=== PATIENT | male | born 1995 | race Caucasian/White ===

== ENCOUNTER 2020-12-10 12:26 | Inpatient (IN) ==
[2020-12-11] MEDS ORDERED: *HR* HYDROcodone/Acet 5/325 mg TABLET PO PRN ×2 (04:00→12:41)
[2020-12-11] MEDS ORDERED: ceFAZolin 2,000 MG in Water for inj. (sterile) 20 ML IVP ONE (08:08)
[2020-12-11] MEDS ORDERED: *HR* Midazolam HCl 2 MG/2 ML VIAL ONE ×2 (08:49→11:48)
[2020-12-11] MEDS ORDERED: *HR* Propofol 200 MG/20 ML VIAL IVP ONE ×2 (08:49)
[2020-12-11] MEDS ORDERED: *HR* FentaNYL (PF) 100 MCG/2 ML VIAL ONE ×3 (08:49→11:07)
[2020-12-11] MEDS ORDERED: Gabapentin 300 MG CAPSULE PO ONE (08:52)
[2020-12-11] MEDS ORDERED: Lidocaine -MPF 2% 2 ML VIAL ONE (08:52)
[2020-12-11] MEDS ORDERED: Ondansetron 4 MG/2 ML VIAL IVP PRN ×2 (08:53→12:41)
[2020-12-11] MEDS ORDERED: *HR* OxyCODONE Immed Rel 5 MG TABLET PO PRN (08:53)
[2020-12-11] MEDS ORDERED: Ketorolac 30 MG/ML VIAL IVP PRN (08:53)
[2020-12-11] MEDS ORDERED: Albuterol 2.5 MG/3 ML NEBULIZER IH PRN (08:53)
[2020-12-11] MEDS ORDERED: Acetaminophen IV 1,000 MG/100 ML BAG IVPB ONE ×2 (08:55→10:18)
[2020-12-11] MEDS ORDERED: Nicotine 14 MG PATCH.TD24 TD SCH (09:00)
[2020-12-11] MEDS ORDERED: Doxycycline 800 MG, Syringe LUER-LOK 1 EACH in 0.9 % Sodium Chloride 50 ML IX ONE (09:00)
[2020-12-11] MEDS ORDERED: *HR* Rocuronium Bromide 50 MG/5 ML VIAL ONE (09:05)
[2020-12-11] MEDS ORDERED: Ketorolac 30 MG/ML VIAL ONE (09:48)
[2020-12-11] MEDS ORDERED: Sugammadex Sodium 200 MG/2 ML VIAL IV ONE (10:32)
[2020-12-11] MEDS ORDERED: *HR* HYDROMORPHONE 2 MG/ML VIAL ONE (10:43)
[2020-12-11] MEDS: *HR* HYDROmorphone PF 0.5 MG/0.5 ML SYRINGE IVP PRN ×2 (11:12→11:40)
[2020-12-11] MEDS ORDERED: *HR* Midazolam HCl 2 MG/2 ML VIAL IVP PRN (11:37)
[2020-12-11] MEDS ORDERED: Naloxone 0.4 MG/ML INJ IVP PRN (12:41)
[2020-12-11] MEDS: 0.9 % Sodium Chloride 1,000 ML IVC SCH (13:00)
[2020-12-11] MEDS: Ketorolac 15 MG/ML VIAL IVP SCH ×2 (13:00→19:44)
[2020-12-11] MEDS: Ipratropium/Albuterol Neb 3 ML IH SCH ×3 (16:10→23:32)
[2020-12-11] MEDS: *HR* OxyCODONE/APAP 5/325 TABLET PO PRN ×2 (16:12→19:45)
[2020-12-11] MEDS: Gabapentin 300 MG CAPSULE PO SCH ×2 (16:12→21:49)
[2020-12-11] MEDS: ALPRAZolam 0.25 MG TABLET PO PRN (16:13)
[2020-12-11] MEDS: Sennosides/Docusate Sodium TABLET PO SCH (21:49)
[2020-12-11] MEDS: Famotidine 20 MG TABLET PO SCH (21:49)
[2020-12-11] MEDS: Nicotine 14 MG PATCH.TD24 TD SCH (22:01)
[2020-12-12] MEDS: *HR* OxyCODONE/APAP 5/325 TABLET PO PRN ×3 (00:20→20:19)
[2020-12-12] MEDS: ALPRAZolam 0.25 MG TABLET PO PRN ×2 (00:21→20:19)
[2020-12-12] MEDS: Ketorolac 15 MG/ML VIAL IVP SCH ×4 (00:21→18:27)
[2020-12-12] MEDS: 0.9 % Sodium Chloride 1,000 ML IVC SCH ×2 (02:20→15:25)
[2020-12-12 02:50] LABS: Hemoglobin 13.8 g/dL (12.9-16.9); Mean Corpuscular HGB Conc 33.7 g/dL (31.6-35.5); Mean Corpuscular Hemoglobin 29.9 pg (28.0-33.3); Mean Corpuscular Volume 88.7 fL (83.0-100.0); Mean Platelet Volume 10.3 fL (9.4-12.4); Platelet Count 213 K/mcL (140-400); Red Blood Count 4.62 M/mcL (4.19-5.50); Red Cell Distribution Width 12.5 % (11.5-14.5); White Blood Count 11.8 K/mcL (4.3-11.1)
[2020-12-12 03:01] LABS: BUN/Creatinine Ratio 15 (6-26); Blood Urea Nitrogen 13 mg/dL (6-20); Calcium 8.9 mg/dL (8.6-10.3); Carbon Dioxide 25 mEq/L (23-29); Chloride 104 mEq/L (98-107); Glucose 121 mg/dL (70-105); Magnesium 1.6 mg/dL (1.6-2.6); Osmolality,Calculated 287 (280-300); Potassium 3.9 mEq/L (3.5-5.1); Sodium 138 mEq/L (136-145); eGFR For African Americans > 60 (> 60); eGFR For Non-African Americans > 60 (> 60)
[2020-12-12] MEDS: Ipratropium/Albuterol Neb 3 ML IH SCH ×6 (03:33→23:51)
[2020-12-12] MEDS: Nicotine 14 MG PATCH.TD24 TD SCH (09:15)
[2020-12-12] MEDS: Sennosides/Docusate Sodium TABLET PO SCH ×2 (09:15→20:19)
[2020-12-12] MEDS: Famotidine 20 MG TABLET PO SCH ×2 (09:15→20:19)
[2020-12-12] MEDS: Gabapentin 300 MG CAPSULE PO SCH ×3 (09:15→20:19)
[2020-12-13] MEDS: Ketorolac 15 MG/ML VIAL IVP SCH ×4 (00:03→17:57)
[2020-12-13] MEDS: Ipratropium/Albuterol Neb 3 ML IH SCH ×6 (04:05→23:35)
[2020-12-13] MEDS: 0.9 % Sodium Chloride 1,000 ML IVC SCH ×2 (04:52→19:57)
[2020-12-13] MEDS: Sennosides/Docusate Sodium TABLET PO SCH ×3 (09:04→19:58)
[2020-12-13] MEDS: Nicotine 14 MG PATCH.TD24 TD SCH (09:04)
[2020-12-13] MEDS: Gabapentin 300 MG CAPSULE PO SCH ×4 (09:04→19:58)
[2020-12-13] MEDS: Famotidine 20 MG TABLET PO SCH ×3 (09:04→19:58)
[2020-12-13] MEDS: *HR* OxyCODONE/APAP 5/325 TABLET PO PRN ×3 (09:11→19:58)
[2020-12-13] MEDS: ALPRAZolam 0.25 MG TABLET PO PRN ×2 (09:12→19:58)
[2020-12-14] MEDS: Ketorolac 15 MG/ML VIAL IVP SCH ×3 (00:07→11:56)
[2020-12-14] MEDS: Ipratropium/Albuterol Neb 3 ML IH SCH ×3 (04:29→11:41)
[2020-12-14] MEDS: *HR* OxyCODONE/APAP 5/325 TABLET PO PRN ×2 (06:04→11:54)
[2020-12-14] MEDS: ALPRAZolam 0.25 MG TABLET PO PRN (06:04)
[2020-12-14 07:24] VITALS: TEMP 98
[2020-12-14] MEDS: Sennosides/Docusate Sodium TABLET PO SCH (09:29)
[2020-12-14] MEDS: Nicotine 14 MG PATCH.TD24 TD SCH (09:30)
[2020-12-14] MEDS: 0.9 % Sodium Chloride 1,000 ML IVC SCH (09:30)
[2020-12-14] MEDS: Gabapentin 300 MG CAPSULE PO SCH (09:30)
[2020-12-14] MEDS: Famotidine 20 MG TABLET PO SCH (09:30)
[2020-12-14 11:21] VITALS: BP 143/93; PULSE 89; O2SAT 96
== END 2020-12-14 13:14 | disposition home or self-care (01) | DRG 121 ==
LOC: 2NENU
PROVIDERS: ADMIT Thoracic Surgery (Cardiothoracic Vascular Surgery); ATTEND Thoracic Surgery (Cardiothoracic Vascular Surgery)